=== PATIENT | female | born 1995 | race Caucasian/White ===

== ENCOUNTER 2022-09-25 10:15 | Outpatient (CLI) | payer OTHER ==
[2022-09-26 10:05] LABS: BILIRUBIN,URINE NEGATIVE (NEGATIVE); GLUCOSE, URINE (UA) NEGATIVE (NEGATIVE); KETONES,URINE (UA) NEGATIVE (NEGATIVE); LEUKOCYTE ESTERASE, URINE SMALL (NEGATIVE); NITRITE,URINE NEGATIVE (NEGATIVE); OCCULT BLOOD,URINE NEGATIVE (NEGATIVE); PROTEIN,URINE NEGATIVE (NEGATIVE); UROBILINOGEN,URINE 0.2 (NORMAL) E.U./dL (NORMAL)
[2022-09-26 10:13] LABS: BACTERIA,URINE Few /HPF (None Seen); CLARITY,URINE HAZY (CLEAR); RBC,URINE 0-5 /HPF (0-5); SQUAMOUS EPITHELIAL CELL,UR MANY Squamous (<= Few); WBC,URINE 0-3 /HPF (0-5)
== END 2022-09-25 10:16 | disposition home or self-care (01) ==
LOC: LAB.WC 10:15
PROVIDERS: ATTEND Obstetrics & Gynecology
DX: Z34.90 Encounter for supervision of normal pregnancy, unspecified, unspecified trimester (principal)
CPT/HCPCS: 81001; 87086

== ENCOUNTER 2022-09-26 10:52 | Outpatient (CLI) | payer OTHER ==
[2022-09-26 17:40] LABS: BASOPHILS % (AUTO) 0.5 %; EOSINOPHILS % (AUTO) 0.5 %; HCT - HEMATOCRIT 35.3 % (37.0-47.0); LYMPHOCYTES # (AUTO) 2.1 10^3/uL (1.5-3.5); LYMPHOCYTES % (AUTO) 32.7 %; MEAN CORPUSCULAR HEMOGLOBIN 30.7 pg (27.0-31.0); MEAN CORPUSCULAR VOLUME 90.3 fL (81.0-99.0); MEAN PLATELET VOLUME 10.7 fL (7.9-10.8); MONOCYTES # (AUTO) 0.4 10^3/uL (0.0-1.0); MONOCYTES % (AUTO) 6.5 %; NEUTROPHILS # (AUTO) 3.7 10^3/uL (1.5-6.6); NEUTROPHILS % (AUTO) 59.6 %; PLT - PLATELET COUNT 279 10^3/uL (130-450); RED BLOOD COUNT 3.91 10^6/uL (4.20-5.40); RED CELL DISTRIBUTION WIDTH 13.4 % (12.0-15.0); WHITE BLOOD COUNT 6.3 x10^3/uL (4.8-10.8)
[2022-09-27 06:10] LABS: HBsAG SCREEN Negative (Negative); HCV AB Non Reactive (Non Reactive); RPR Non Reactive (Non Reactive)
[2022-09-27 07:10] LABS: HIV SCREEN 4TH GENERATION Non Reactive (Non Reactive)
[2022-09-27 08:10] LABS: VARICELLA-ZOSTER AB IGG 229 index (Immune >165)
== END 2022-09-26 10:53 | disposition home or self-care (01) ==
LOC: LAB.N 10:52
PROVIDERS: ATTEND Obstetrics & Gynecology
DX: Z34.90 Encounter for supervision of normal pregnancy, unspecified, unspecified trimester (principal)
CPT/HCPCS: 36415; 85025; 86592; 86762; 86787; 86803; 86850; 86900; 86901; 87340; 87389

== ENCOUNTER 2022-10-11 18:33 | Outpatient (CLI) | payer OTHER ==
--- NOTE | 2022-10-13 09:11 | Ultrasound Report ---
PROCEDURE: OB First Trimester w/TV INDICATIONS: POSITIVE TEST OUTSIDE/PRIOR DATING DATA: Last menstrual period (LMP): 08/13/2022. LMP-based estimated date of delivery (SCOTT): 05/20/2023. First dating scan (date and location): 10/11/2022. Estimated date of delivery (SCOTT) from first dating scan: 05/22/2023. TECHNIQUE: Real-time scanning was performed of the fetus and maternal pelvic organs, with image documentation. Endovaginal scanning was also performed to better visualize the fetus and maternal ovaries. COMPARISON: None FINDINGS: Embryo: There is a limiting intrauterine with yolk sac and pole. The crown-rump arnoldo th measures 1.66 cm corresponding to estimated gestational age of 8 weeks 1 day. There is a small per igestational hemorrhage encompassing approximately 10% of the gestational sac. Heart rate: 166 bpm Measurement variability in dating: +/- 4 weeks by LMP, +/- 7 days by mean sac diameter (use before 6 weeks gestation if crown-rump length not able to be measured), +/- 5 days by crown-rump length (6-12 weeks gestation). Maternal organs: There is a corpus luteal cyst noted within the right ovary. The ovaries are otherwis e normal in size and appearance. IMPRESSION: Single intrauterine with heart rate of 166 bpm with crown-rump length corresponding t o estimated gestational age of 8 weeks 1 day with estimated date of delivery 05/22/2023. Small perigestational hemorrhage, a common finding in the first trimester. Reviewed by: Stephen Mandujano DO on 10/13/2022 8:10 AM CARMELO Approved by: Stephen Mandujano DO on 10/13/2022 8:10 AM CARMELO Station ID: [id number]
== END 2022-10-11 18:34 | disposition home or self-care (01) ==
LOC: DI 18:33
PROVIDERS: ATTEND Obstetrics & Gynecology
DX: O20.8 Other hemorrhage in early pregnancy (principal); Z3A.08 8 weeks gestation of pregnancy

== ENCOUNTER 2022-10-28 08:00 | Outpatient (CLI) | payer OTHER ==
[2022-10-28 20:28] LABS: CHLAMYDIA TRACHOMATIS DNA NEGATIVE (NEGATIVE); NEISSERIA GONORRHOEAE DNA NEGATIVE (NEGATIVE); TRICHOMONAS VAGINALIS DNA NEGATIVE (NEGATIVE)
== END 2022-10-28 23:59 | disposition home or self-care (01) ==
LOC: LAB.WC 08:00
PROVIDERS: ATTEND Obstetrics & Gynecology
DX: Z11.3 Encounter for screening for infections with a predominantly sexual mode of transmission (principal)
CPT/HCPCS: 87491; 87591; 87661

== ENCOUNTER 2022-11-21 10:09 | Emergency (ER) | payer OTHER ==
[2022-11-21 11:17] LABS: BASOPHILS % (AUTO) 0.2 %; EOSINOPHILS % (AUTO) 0.1 %; HCT - HEMATOCRIT 32.8 % (37.0-47.0); HGB - HEMOGLOBIN 11.5 g/dL (12.0-16.0); LYMPHOCYTES # (AUTO) 1.3 10^3/uL (1.5-3.5); LYMPHOCYTES % (AUTO) 16.6 %; MEAN CORPUSCULAR HEMOGLOBIN 30.7 pg (27.0-31.0); MEAN CORPUSCULAR HGB CONC 35.1 g/dL (32.0-36.0); MEAN CORPUSCULAR VOLUME 87.7 fL (81.0-99.0); MEAN PLATELET VOLUME 10.2 fL (7.9-10.8); MONOCYTES # (AUTO) 0.4 10^3/uL (0.0-1.0); MONOCYTES % (AUTO) 4.6 %; NEUTROPHILS # (AUTO) 6.2 10^3/uL (1.5-6.6); NEUTROPHILS % (AUTO) 77.9 %; PLT - PLATELET COUNT 217 10^3/uL (130-450); RED BLOOD COUNT 3.74 10^6/uL (4.20-5.40); RED CELL DISTRIBUTION WIDTH 12.9 % (12.0-15.0)
[2022-11-21] MEDS ORDERED: SODIUM CHLORIDE 0.9% 1,000 ML IV STA (11:24)
[2022-11-21] MEDS ORDERED: IPRATROPIUM/ALBUTEROL 3 ML NEB INH STA (11:32)
[2022-11-21 11:33] LABS: ALBUMIN 3.3 g/dL (3.2-5.5); BILIRUBIN,TOTAL 0.6 mg/dL (0.2-1.0); CALCIUM 8.7 mg/dL (8.5-10.3); CREATININE 0.5 mg/dL (0.4-1.0); POTASSIUM 4.2 mmol/L (3.5-5.0); TOTAL PROTEIN 6.7 g/dL (6.7-8.2)
--- NOTE | 2022-11-21 11:47 | ED Physician Documentation ---
History of Present Illness - Stated complaint Stated Complaint: LEG CRAMPING/PX - Chief complaint Chief Complaint: Ext Problem - Additonal information Additional information: 27-year-old female who is reportedly 14 weeks presents to the emergency department for cramping in both her upper thighs. G3, P2. Being followed by Terry Solorio. She reports that she was playing kickball and has not been active or running in quite some time. She was running to the first base when she felt a sudden cramping in both her legs that collapsed her to the ground. She was unable to get up until a friend gently stretched her legs and that allowed her to ambulate. Since then she has felt dull cramping in her upper thighs radiating down towards her knees. She does not yet feel movement. She has no loss of fluids or vaginal ble eding. No nausea or vomiting. No diarrhea. No history of cramping in the past. States that she is staying well-hydrated and describes her urine as pale yellow. Review of Systems Constitutional: denies: Fever Nose: reports: Reviewed and negative Cardiac: reports: Reviewed and negative Respiratory: reports: Reviewed and negative GI: reports: Reviewed and negative : reports: Reviewed and negative Musculoskeletal: reports: Other (Cramping in upper thighs bilaterally) Neurologic: reports: Reviewed and negative Psychiatric: reports: Reviewed and negative PD PAST MEDICAL HISTORY - Allergies Allergies/Adverse Reactions: Allergies Allergy/AdvReac Type Severity Reaction Status Date / Time nickel Allergy Hives Verified 02/19/22 13:52 Latex, Natural Rubber AdvReac Itching Verified 02/19/22 13:51 PD ED PE NORMAL - General General: Alert and oriented X 3, No acute distress, Well developed/nourished - HEENT HEENT: PERRL - Cardiac Cardiac: RRR, No murmur - Respiratory Respiratory: No respiratory distress, Clear bilaterally - Abdomen Abdomen: Normal bowel sounds, Soft, Non tender - Back Back: No CVA TTP - Derm Derm: Normal color, Warm and dry, No rash - Extremities Extremities: No deformity, Normal ROM s pain, Other (Patient reports cramping in the upper thighs though no spasm is felt. She has a normal gait. No posterior calf pain tenderness). No: No tenderness to palpate - Neuro Neuro: Alert and oriented X 3, manager testing 2-12 intact Eye Opening: Spontaneous Motor: Obeys Commands Verbal: Oriented GCS Score: 15 Results - Vitals Vitals: Vital Signs - 24 hr 11/21/22 10:24 Temperature 36.3 C L Heart Rate 79 Respiratory 18 Rate Blood Pressure 130/78 O2 Saturation 100 Oxygen O2 Source Room air - Labs Labs: Laboratory Tests 11/21/22 11/21/22 11/21/22 11:12 11:12 11:12 WBC 8.0 RBC 3.74 L Hgb 11.5 L Hct 32.8 L MCV 87.7 MCH 30.7 MCHC 35.1 RDW 12.9 Plt Count 217 MPV 10.2 Neut # (Auto) 6.2 Lymph # (Auto) 1.3 L [place] # (Auto) 0.4 Eos # (Auto) 0.0 Baso # (Auto) 0.0 Absolute Nucleated RBC 0.00 Nucleated RBC % 0.0 Sodium 140 Potassium 4.2 Chloride 109 Carbon Dioxide 25 Anion Gap 6.0 BUN 9 Creatinine 0.5 Estimated GFR (MDRD) 149 Glucose 85 Calcium 8.7 Magnesium 1.9 Total Bilirubin 0.6 AST 18 ALT 14 Alkaline Phosphatase 37 L Total Protein 6.7 Albumin 3.3 Globulin 3.4 Albumin/Globulin Ratio 1.0 Lipase 41 PD Medical Decision Making - ED course Complexity details: reviewed results, re-evaluated patient, d/w patient ED course: 27-year-old female who is 14 weeks G3, P2 presents emergency department for cramping in the upper thighs that occurred when she was running during kickball. No vaginal bleeding or loss of fluids. She is never had this problem in before. She has no leg swelling. No chest pain or shortness of air. We did check heart tones via Doppler here and they were normal. We also checked CBC, electrolytes and magnesium and were all without acute abnormality. I did give the patient a liter of IV fluids. She reports she still continues to have some mild cramping in the upper thighs. Clinically there is nothing suggest a DVT. I have encouraged the patient gentle activity and stretching. I encouraged sitz bath and or drinking broth which may be helpful. She will continue to follow with Terry Solorio. Usual emergent re turn precautions were discussed for worsening symptoms Departure - Departure Disposition: 01 Home, Self Care Clinical Impression: Leg cramps in Condition: Stable Record reviewed to determine appropriate education?: Yes Follow-Up: Terry Solorio MD [Provider Admit Priv/Credential] - Comments: Marley you are seen today in the emergency department because you developed cramping in your upper thighs when you are running during kickball. Cramping is a common complication of . Most women will feel better when they stay well-hydrated though you seemingly are well-hydrated. Your electrolytes and blood count were also normal for with no worrisome findings. I encouraged gentle stretching. Drinking broths and soups can often be helpful. A sitz bath can also be helpful at reducing leg cramps. I encourage you to discuss this ED visit with Dr. Solorio. Return to the ER with any worsening symptoms
[2022-11-21 12:51] VITALS: BP 115/69
== END 2022-11-21 12:49 | disposition home or self-care (01) ==
LOC: ED 10:09
DX: O99.891 Other specified diseases and conditions complicating pregnancy (principal); R25.2 Cramp and spasm
CPT/HCPCS: 36415; 80053; 83690; 83735; 85025; 99283; 99284

== ENCOUNTER 2022-12-03 09:20 | Outpatient (CLI) | payer OTHER ==
[2022-12-05 21:07] LABS: AFP MOM 0.65 (.); AFP VALUE 19.9 ng/mL (.); DIA MOM 0.59 (.); DIA VALUE 82.01 pg/mL (.); DSR (BY AGE) 1 IN 918 (.); DSR (SECOND TRIMESTER) 1 IN 6193 (.); HCG VALUE 42074 mIU/mL (.); INSULIN DEP DIABETES No (.); MATERNAL AGE AT EDD 27.1 yr (.); MULTIPLE GESTATION No (.); OPEN SPINA BIFIDA RISK 1 IN 10000 (.); RACE Caucasian (.); RESULTS Report (.); TEST RESULTS *Screen Negative* (.); TRISOMY 18 RISK Not increased (.); UE3 MOM 0.85 (.); UE3 VALUE 0.76 ng/mL (.); WEIGHT 181 lbs (.)
== END 2022-12-03 09:21 | disposition home or self-care (01) ==
LOC: LAB.N 09:20
PROVIDERS: ATTEND Obstetrics & Gynecology
DX: Z34.90 Encounter for supervision of normal pregnancy, unspecified, unspecified trimester (principal)
CPT/HCPCS: 81511

== ENCOUNTER 2022-12-31 08:45 | Outpatient (CLI) | payer OTHER ==
--- NOTE | 2022-12-31 12:08 | Ultrasound Report ---
PROCEDURE: OB Detailed Eval INDICATIONS: SUPERVISION OF OUTSIDE/PRIOR DATING DATA: Last menstrual period (LMP): 08/13/2022. LMP-based estimated date of delivery (SCOTT): 05/20/2023. First dating scan (date and location): 10/11/2022. Estimated date of delivery (SCOTT) from first dating scan: 05/22/2023. The below data below was generated using the ultrasound SCOTT of 05/22/2023 TECHNIQUE: Real-time scanning was performed of the fetus, with image documentation and biometric measurements. Endovaginal scanning: Not performed COMPARISON: None. FINDINGS: General: A single living intrauterine gestation is present. Presentation: Variable Placenta: Placental position is anterior, without previa. Amniotic fluid index: 14.2 cm, within normal limits for gestational age. heart rate: 144 beats per minute. Maternal cervical canal: 4 cm long; normal length is 2.5 cm or more. biometrics: Biparietal diameter: 4.6 cm, 19 weeks 5 days Head circumference: 16.7 cm, 19 weeks 2 days Abdominal circumference: 14.5 cm, 19 weeks 6 days Femur length: 3.2 cm, 19 weeks 6 days Estimated gestational age from initial scan: 19 weeks 5 days Composite gestational age from present scan: 19 weeks 5 days Estimated weight and percentile: 315 g, 51 percentile Measurement variability in biometric dating: +/- 10 days from 12-20 weeks gestation, +/- 2 weeks from 20-30 weeks gestation, +/- 3 weeks at 30 weeks gestation or later. Anatomic survey: Neuro: Ventricles are normal at less than 10 mm. Cisterna magna is normal at 3-11 mm. Cerebellum i s normal in size and morphology. Nuchal skin fold: Normal at less than 6 mm between 14 and 20 weeks gestational age. Face: Nose and lips, facial profile are normal. Spine: No evidence for spina bifida. Heart: 4-chambered heart is present, with normal ventricular outflow tracts. Diaphragm: Diaphragm is intact. Stomach: Left-sided stomach is present. Kidneys: No hydronephrosis. Normal is less than 5 mm in 2nd trimester, less than 7 mm in 3rd trimester. Cord: 3 vessel cord has orthotopic insertion. Bladder: Normal in size. Extremities: All 4 extremities are visualized. IMPRESSION: Single living intrauterine at 19 weeks 5 days, SCOTT of 05/22/2023. Unremarkable anatomy survey. 315 g, 51st percentile. Reviewed by: Cory Ferreira on 12/31/2022 12:07 PM PDT Approved by: Cory Ferreira on 12/31/2022 12:07 PM PDT Station ID: [id number]
== END 2022-12-31 08:46 | disposition home or self-care (01) ==
LOC: DI 08:45
PROVIDERS: ATTEND Obstetrics & Gynecology
DX: Z34.92 Encounter for supervision of normal pregnancy, unspecified, second trimester (principal); Z3A.19 19 weeks gestation of pregnancy

== ENCOUNTER 2023-02-14 08:40 | Outpatient (CLI) | payer OTHER ==
[2023-02-14 12:15] LABS: HCT - HEMATOCRIT 34.3 % (37.0-47.0); HGB - HEMOGLOBIN 11.7 g/dL (12.0-16.0); MEAN CORPUSCULAR HGB CONC 34.1 g/dL (32.0-36.0); MEAN PLATELET VOLUME 11.4 fL (7.9-10.8); RED BLOOD COUNT 3.77 10^6/uL (4.20-5.40); RED CELL DISTRIBUTION WIDTH 12.8 % (12.0-15.0); WHITE BLOOD COUNT 8.9 x10^3/uL (4.8-10.8)
== END 2023-02-14 08:41 | disposition home or self-care (01) ==
LOC: LAB.N 08:40
PROVIDERS: ATTEND Obstetrics & Gynecology
DX: Z34.90 Encounter for supervision of normal pregnancy, unspecified, unspecified trimester (principal)
CPT/HCPCS: 36415; 82950; 85027

== ENCOUNTER 2023-04-21 08:00 | Outpatient (CLI) | payer OTHER | END 2023-04-21 23:59 | disposition home or self-care (01) | LOC: LAB.WC 08:00 | PROVIDERS: ATTEND Obstetrics & Gynecology | DX: Z36.85 Encounter for antenatal screening for Streptococcus B (principal) | CPT/HCPCS: 87797 ==

== ENCOUNTER 2023-04-30 14:06 | Outpatient (CLI) | payer OTHER ==
[2023-04-30 14:20] VITALS: BP 133/82
[2023-04-30] MEDS ORDERED: SODIUM CHLORIDE 0.9% 500 ML IV ONE (14:43)
[2023-04-30 15:37] LABS: CREATININE,URINE 45.5 mg/dL; PROTEIN/CREATININE RATIO,URINE 0.1 (<=0.2)
--- NOTE | 2023-04-30 15:37 | PROVIDER PROGRESS NOTE ---
- HPI Chief Complaint: Headache (Patient is a -0-0-2 presenting at 37 weeks and 1 day with headache that started this morning. Patient has had a history of headaches in the that occur overnight that typically go away with Tylenol. Patient states this 1 did not go away. She has no other complaints. Positive ) Current : Vital Signs Temperature 98.3 F 04/30/23 14:18 Heart Rate 72 04/30/23 14:18 Respiratory Rate 16 04/30/23 14:18 Blood Pressure 133/82 H 04/30/23 14:18 Temperature 98.3 F 04/30/23 14:19 Heart Rate 75 04/30/23 14:19 Respiratory Rate 16 04/30/23 14:19 Blood Pressure 133/82 H 04/30/23 14:19 O2 Saturation If not protocol: Oxygen Flow, liters/minute - Exam Gen: NAD, patient laughing and talking Pulm: CTA bilaterally Cardiac: RRR Abdomen: gravid, nontender ext: trace edema neuro: 1+ DTRs bilaterally - Procedures OB Procedure Performed: NST NST Procedure: NST Procedure Start Time 14:50 Stop Time 15:12 37+1 weeks 140, moderate variability, +accels, no decels reactive NST - Plan Plan: If preeclampsia labs are within normal limits will discharge to home. Blood pressures have been within normal limits. Patient given IV fluids, Benadryl and Reglan. wellbeing is reassuring.
[2023-04-30 15:38] LABS: ALBUMIN 3.4 g/dL (3.2-5.5); BILIRUBIN,TOTAL 0.3 mg/dL (0.2-1.0); CALCIUM 9.2 mg/dL (8.5-10.3); CREATININE 0.7 mg/dL (0.6-1.3); POTASSIUM 3.7 mmol/L (3.5-4.5); TOTAL PROTEIN 6.7 g/dL (6.4-8.9); URIC ACID 6.3 mg/dL (2.3-6.6)
[2023-04-30] MEDS ORDERED: diphenhydrAMINE INJ 50 MG/ML VIAL IVP PRN (15:45)
[2023-04-30] MEDS ORDERED: ACETAMINOPHEN 325 MG TABLET PO PRN (15:46)
[2023-04-30] MEDS ORDERED: METOCLOPRAMIDE 10 MG/2 ML VIAL IVP ONE (16:00)
== END 2023-04-30 17:20 | disposition home or self-care (01) ==
LOC: WFO 14:06 → FBP 14:06 → WFO 17:20
PROVIDERS: ATTEND Obstetrics & Gynecology Obstetrics
DX: O99.891 Other specified diseases and conditions complicating pregnancy (principal); R51.9 Headache, unspecified; Z3A.37 37 weeks gestation of pregnancy
CPT/HCPCS: 36415; 59025; 80053; 82570; 83615; 84156; 84550; 96361; 96374; 99215; A9270; J1200; J2765

== ENCOUNTER 2023-05-12 13:47 | Outpatient (CLI) | payer OTHER ==
[2023-05-12 14:26] LABS: HCT - HEMATOCRIT 33.3 % (37.0-47.0); MEAN CORPUSCULAR HEMOGLOBIN 28.7 pg (27.0-31.0); MEAN CORPUSCULAR VOLUME 86.9 fL (81.0-99.0); MEAN PLATELET VOLUME 10.7 fL (7.9-10.8); RED BLOOD COUNT 3.83 10^6/uL (4.20-5.40); WHITE BLOOD COUNT 10.8 x10^3/uL (4.8-10.8)
[2023-05-12 14:38] LABS: ALBUMIN 3.5 g/dL (3.2-5.5); BILIRUBIN,TOTAL 0.2 mg/dL (0.2-1.0); CALCIUM 8.8 mg/dL (8.5-10.3); CREATININE 0.7 mg/dL (0.6-1.3); POTASSIUM 4.1 mmol/L (3.5-4.5); TOTAL PROTEIN 7.1 g/dL (6.4-8.9)
[2023-05-12 14:39] LABS: CREATININE,URINE 89.5 mg/dL; PROTEIN/CREATININE RATIO,URINE 0.1 (<=0.2)
== END 2023-05-12 13:48 | disposition home or self-care (01) ==
LOC: LAB 13:47
PROVIDERS: ATTEND Obstetrics & Gynecology
DX: O99.891 Other specified diseases and conditions complicating pregnancy (principal); R03.0 Elevated blood-pressure reading, without diagnosis of hypertension
CPT/HCPCS: 36415; 80053; 82570; 84156; 85027

== ENCOUNTER 2023-05-22 13:33 | Outpatient (CLI) | payer OTHER ==
[2023-05-22 14:47] VITALS: BP 128/78
--- NOTE | 2023-05-22 15:04 | Ultrasound Report ---
PROCEDURE: OB Limited INDICATIONS: ALVARADO OUTSIDE/PRIOR DATING DATA: Last menstrual period (LMP): 08/13/2022. LMP-based estimated date of delivery (SCOTT): 05/20/2023. First dating scan (date and location): 10/11/2022. Estimated date of delivery (SCOTT) from first dating scan: 05/22/2023. The below data below was generated using the working SCOTT of 05/20/2023 TECHNIQUE: Real-time scanning was performed of the fetus, with image documentation. Endovaginal scanning: Not performed COMPARISON: 12/31/2022 FINDINGS: A single living intrauterine gestation is present. Presentation: Cephalic Placenta: Placental position is anterior, without previa. Amniotic fluid index: 19.0 cm, greater than 95th percentile for gestational age. heart rate: 148 beats per minutes. Maternal cervical canal: 4.3 cm long; normal length is 2.5 cm or more. Estimated gestational age from initial scan: 40 weeks 2 days IMPRESSION: 1. Living post term intrauterine with no sonographic evidence of complications. 2. Polyhydramnios: ALVARADO measures 19.0 cm Reviewed by: Horacio Castellano MD on 05/22/2023 3:03 PM PST Approved by: Horacio Castellano MD on 05/22/2023 3:03 PM PST Station ID: [id number]
--- NOTE | 2023-05-22 15:41 | PROVIDER PROGRESS NOTE ---
- HPI Current : Vital Signs Temperature 98.1 F 05/22/23 13:48 Temperature 98.1 F 05/22/23 13:49 Heart Rate 78 05/22/23 13:49 Respiratory Rate 16 05/22/23 13:49 Blood Pressure 128/78 05/22/23 13:49 O2 Saturation If not protocol: Oxygen Flow, liters/minute - Procedures OB Procedure Performed: NST Diagnosis/Indication for NST: Oligohydramnios NST Procedure: NST Procedure Start Time 14:40 Stop Time 15:10 Service Date of procedure: 05/22/23 (Read 05/22/2023) - Plan Plan: Patient is a 28-year-old -0-0-2 at 40 weeks 2 days gestation presenting for oligohydramnios subjectively noted at clinic. She has good movement, no leaking, no vaginal bleeding. She denies headache, right upper quadrant pain, changes in vision. Physical Exam Constitutional: alert, no acute distress, well hydrated, well developed, well n ourished, appropriate dress. Cardiovascular: Regular rate and rhythm. Respiratory: no respiratory distress. Abdomen: nondistended, nontender, no guarding. Psych: affect and mood appropriate, normal interaction, good eye contact FHT: 145 bpm baseline, moderate variability, accelerations present, 1 variable deceleration early in her stay. [place]: 5 to 10 minutes, irregular Patient presented today coming from clinic for subjective polyhydramnios. Had a normal ALVARADO on admission. NST showed 1 variable deceleration with patient positioning, and she was observed in triage for over an additional hour with no additional episodes. Discussed option of staying for induction, but patient is not ready due to family concerns. She will present in 2 days for labor induction. Discussed decreased movement, leaking, labor precautions.
== END 2023-05-22 15:45 | disposition home or self-care (01) ==
LOC: WFO 13:33 → FBP 13:35 → WFO 15:45
PROVIDERS: ATTEND Obstetrics & Gynecology
DX: O40.3XX0 Polyhydramnios, third trimester, not applicable or unspecified (principal); O48.0 Post-term pregnancy; Z3A.40 40 weeks gestation of pregnancy
CPT/HCPCS: 59025; 99215

== ENCOUNTER 2023-05-23 18:34 | Outpatient (CLI) | payer OTHER ==
[2023-05-23 19:28] VITALS: BP 127/73
--- NOTE | 2023-05-23 20:25 | PROVIDER PROGRESS NOTE ---
- HPI Chief Complaint: Labor Check Current : Current EDU 05/20/23 Gestation 40 Weeks and 3 Days 3 Para 2 Vital Signs Temperature 97.9 F 05/23/23 19:04 Heart Rate 76 05/23/23 19:04 Respiratory Rate 18 05/23/23 19:04 Blood Pressure 127/73 05/23/23 19:04 Temperature 97.9 F 05/23/23 19:04 Heart Rate 76 05/23/23 19:04 Respiratory Rate 18 05/23/23 19:04 Blood Pressure 127/73 05/23/23 19:04 O2 Saturation If not protocol: Oxygen Flow, liters/minute - Exam -2 - Procedures OB Procedure Performed: NST NST Procedure: NST Procedure Start Date 05/23/23 Start Time 18:50 Stop Time 19:15 Vibroacoustic Stimulation Used No Patient States Movement Yes 40+2 130, moderate variability, +accels, no decels reactive NST Procedure Details: Reactive NST. offered to have patient stay, she preferred to go home. schedule for induction tomorrow am. Advised to return for decreased movement, vaginal bleeding, leakage of fluid or any other concerns.
== END 2023-05-23 19:55 | disposition home or self-care (01) ==
LOC: WFO 18:34 → FBP 18:35 → WFO 19:55
PROVIDERS: ATTEND Obstetrics & Gynecology Obstetrics
DX: O47.1 False labor at or after 37 completed weeks of gestation (principal); O48.0 Post-term pregnancy; Z3A.40 40 weeks gestation of pregnancy
CPT/HCPCS: 59025; 99213

== ENCOUNTER 2023-05-25 08:10 | Inpatient (IN) | payer OTHER ==
--- NOTE | 2023-05-25 09:23 | HISTORY & PHYSICAL EXAMINATION ---
Admit History - Visit Reason Visit Reason: Other (Elective induction of labor) - : 3 Parity: 2 Care: positive: [facility] Risk/History: positive: None Complications This : positive: None - Mother's Labs Mother's Blood Type: positive: O Mother's RH: positive: Positive GBS: positive: Group B Step Negative - HPI Diagnosis/Indication for NST: Other - NST Procedure NST Procedure Start Time 18:50 Stop Time 19:15 40+ weeks 130, moderate variability, +accels, no decels reactive NST Meds/Allgy - Allergies Allergies/Adverse Reactions: Allergies Allergy/AdvReac Type Severity Reaction Status Date / Time nickel Allergy Hives Verified 02/19/22 13:52 Latex, Natural Rubber AdvReac Itching Verified 02/19/22 13:51 Review of Systems - Constitutional Constitutional: denies: Fatigue, Fever, Chills - Cardiovascular Cariovascular: denies: Chest pain - Respiratory Respiratory: denies: Cough - Gastrointestinal Gastrointestinal: denies: Abdominal pain - All Other Systems All Other Systems: reports: Reviewed and negative Physical - Abdominal Exam Uterine Resting Tone: positive: Soft - Monitoring Strip Review: positive: Category I - Presentation Presentation: positive: Vertex - Vaginal Exam Membranes: positive: Membranes intact Dilation (in cm): 3 Effacement (%): 70 Station: positive: -2 Cervical Position: positive: Midposition Plan for Labor - Plan For Labor I expect patient to be DC'd or transferred within 96 hours.: Yes Plan for Labor: Discussed induction of labor including risk, benefits, and alternatives. Discussed options including Pitocin and artificial rupture membranes. Informed consent was signed. Patient agrees to starting Pitocin for induction.
[2023-05-25] MEDS ORDERED: miSOPROStoL 200 MCG TABLET BC PRN (09:26)
[2023-05-25] MEDS ORDERED: NIFEdipine 10 MG CAPSULE PO PRN (09:26)
[2023-05-25] MEDS ORDERED: miSOPROStoL 200 MCG TABLET PR PRN (09:26)
[2023-05-25] MEDS ORDERED: METHYLERGONOVINE 0.2 MG/ML VIAL IM PRN (09:26)
[2023-05-25] MEDS ORDERED: TRANEXAMIC ACID IN NACL 1,000 MG/100 ML BAG IV PRN (09:26)
[2023-05-25] MEDS ORDERED: lidocaine 1% 20 ML MDV ID PRN (09:26)
[2023-05-25] MEDS ORDERED: OXYTOCIN 10 UNIT/ML VIAL IM PRN (09:26)
[2023-05-25] MEDS ORDERED: CARBOPROST TROMETHAMINE 250 MCG/ML AMP IM PRN (09:26)
[2023-05-25] MEDS ORDERED: SODIUM CHLORIDE FLUSH 0.9% 10 ML SYRINGE IVP PRN (09:26)
[2023-05-25] MEDS ORDERED: OXYTOCIN/SODIUM CHLORIDE 500 ML IV PRN (09:26)
[2023-05-25] MEDS ORDERED: fentaNYL 100 MCG/2 ML VIAL IVP PRN (09:26)
[2023-05-25] MEDS ORDERED: LABETALOL 20 MG/4 ML SYRINGE IVP PRN ×3 (09:26)
[2023-05-25] MEDS ORDERED: hydrALAZINE INJ 20 MG/ML VIAL IVP PRN ×2 (09:26)
[2023-05-25] MEDS ORDERED: LACTATED RINGERS 1,000 ML IV PRN (09:26)
[2023-05-25 09:48] LABS: BASOPHILS % (AUTO) 0.2 %; EOSINOPHILS % (AUTO) 0.2 %; HCT - HEMATOCRIT 31.8 % (37.0-47.0); HGB - HEMOGLOBIN 10.6 g/dL (12.0-16.0); LYMPHOCYTES # (AUTO) 1.4 10^3/uL (1.5-3.5); LYMPHOCYTES % (AUTO) 15.4 %; MEAN CORPUSCULAR HEMOGLOBIN 28.5 pg (27.0-31.0); MEAN CORPUSCULAR HGB CONC 33.3 g/dL (32.0-36.0); MEAN CORPUSCULAR VOLUME 85.5 fL (81.0-99.0); MEAN PLATELET VOLUME 11.2 fL (7.9-10.8); MONOCYTES # (AUTO) 0.5 10^3/uL (0.0-1.0); MONOCYTES % (AUTO) 5.6 %; NEUTROPHILS # (AUTO) 6.9 10^3/uL (1.5-6.6); NEUTROPHILS % (AUTO) 78.1 %; PLT - PLATELET COUNT 248 10^3/uL (130-450); RED BLOOD COUNT 3.72 10^6/uL (4.20-5.40); WHITE BLOOD COUNT 8.8 x10^3/uL (4.8-10.8)
[2023-05-25] MEDS ORDERED: OXYTOCIN/SODIUM CHLORIDE 500 ML IV SCH (10:00)
[2023-05-25] MEDS ORDERED: SODIUM CHLORIDE FLUSH 0.9% 10 ML SYRINGE IVP SCH (10:00)
--- NOTE | 2023-05-25 13:32 | PROVIDER PROGRESS NOTE ---
Labor Progress Note - Uterine Monitoring Uterine Monitoring Mode: positive: External toco Contraction Frequency (min/apart): 3 Contraction Intensity: positive: Strong Uterine Resting Tone: positive: Soft - Monitoring Monitor Mode: positive: External ultrasound Heart Rate Variability: positive: Moderate (6-25 bmp) Accelerations: positive: Present, 15x15 Decelerations: positive: None Strip Review: positive: Category I - Labor Progress Note Labor Progress Note/Additional Text: Patient on pitocin currently in tub getting more uncomfortable
--- NOTE | 2023-05-25 14:08 | PROVIDER PROGRESS NOTE ---
Labor Progress Note - Uterine Monitoring Uterine Monitoring Mode: positive: External toco Contraction Intensity: positive: Strong - Monitoring Monitor Mode: positive: External ultrasound Heart Rate Variability: positive: Moderate (6-25 bmp) Accelerations: positive: Present, 15x15 Decelerations: positive: None Strip Review: positive: Category I - Vaginal Exam Dilation (in cm): 5 Effacement (%): 80 - Labor Progress Note Labor Progress Note/Additional Text: AROM with clear fluid on pitocin
[2023-05-25] MEDS ORDERED: SIMETHICONE CHEW 80 MG TABLET PO PRN (15:27)
--- NOTE | 2023-05-25 15:27 | DELIVERY NOTE ---
Delivery Note - Labor Labor: positive: Augmented by ARM, Induced by oxytocin - Delivery Method Infant Delivery Method: positive: Spontaneous vaginal delivery - Presentation Presentation: positive: Vertex - Nuchal Cord Nuchal Cord: positive: Reduced (Nuchal cord reduced at perineum) - Amniotic Fluid Description Amniotic Fluid Description: positive: Clear - Episiotomy Type Episiotomy Type: positive: None - Laceration Laceration: positive: None - Delivery Outcome Delivery Outcome: positive: Livebirth - [place]: positive: Placed in direct skin contact with mother, [place] used sex: positive: Female - Cord Cord: positive: 3 vessels - Placenta Placenta: positive: Intact - Estimated Blood Loss Estimated Blood Loss (in cc): 150 - Post Delivery Events Post Delivery Events: positive: No post delivery events - Delivery Comments (Free Text/Narrative) Delivery Comments (Free Text/Narrative): Stage I: Patient is a presenting at 40+3 for induction of labor. Pitocin started for induction. AROM with clear fluid. FHTs remained reassuring throughout the first stage. Patient received an epidural for anesthesia. Stage II: Female was atraumatcally delivered from SHELIA position. Nuchal cord reduced at perineum. The anterior shoulder was delivered without difficulty followed by the posterior shoulder and body. was vigorous at delivery. was bulb suctioned and cord was doubly clamped and cut. Infant was placed on mom. Weight and APGARS pending Stage III: Gentle cord traction and crede maneuver were used. Placenta del ivered spontaneously, Intact, with a three-vessel cord. Course: Uterine tone was firm with massage after delivery of the placenta. Oxytocin was administered IV. There were no lacerations. EBL: 150 mL. Sponge, needle, and instrument counts were correct at the end the procedure.
[2023-05-25] MEDS: IBUPROFEN 600 MG TABLET PO SCH ×2 (15:49→22:17)
[2023-05-25] MEDS: ACETAMINOPHEN 500 MG TABLET PO SCH (15:50)
[2023-05-25] MEDS ORDERED: LACTATED RINGERS 1,000 ML IV SCH (16:00)
[2023-05-25 19:53] VITALS: O2SAT 100
[2023-05-25] MEDS: DOCUSATE SODIUM 100 MG CAPSULE PO PRN (22:18)
[2023-05-26] MEDS: ACETAMINOPHEN 500 MG TABLET PO SCH ×2 (00:15→08:25)
[2023-05-26] MEDS: IBUPROFEN 600 MG TABLET PO SCH ×2 (04:02→10:23)
--- NOTE | 2023-05-26 07:37 | Discharge Plan ---
Discharge Plan Problem Reviewed?: Yes Disposition: Home, Self Care Condition: Good Diet: Regular No Smoking: If you smoke, Please STOP! Call for help. Follow-up with: CHIO MORAN PA-C [Primary Care Provider] -
--- NOTE | 2023-05-26 07:39 | DISCHARGE SUMMARY ---
Discharge Summary Admit Date: 05/25/23 Discharge Date: 05/26/23 Discharging Provider: Isabel Condition at Discharge: Good Discharge Disposition: 01 Home, Self Care - HPI History of Present Illness: Patient is a G3, P2 who presented for induction of labor. Patient was started on Pitocin. AROM with clear fluid. Patient had an uncomplicated normal spontaneous vaginal delivery. She did well and was discharged home on day 1. Patient was counseled on signs and symptoms of depression. - ALLERGIES Allergies/Adverse Reactions: Allergies Allergy/AdvReac Type Severity Reaction Status Date / Time nickel Allergy Hives Verified 02/19/22 13:52 Latex, Natural Rubber AdvReac Itching Verified 02/19/22 13:51 - PHYSICAL EXAM AT DISCHARGE General Appearance: positive: No acute distress Respiratory: positive: Breath sounds nml Cardiovascular: positive: Regular rate & rhythm Abdomen: positive: Non-tender (Firm fundus below the umbilicus) Skin: positive: Color nml Extremities: positive: Pedal edema (1+) - LABS Result Diagrams: 05/25/23 08:45
--- NOTE | 2023-05-26 07:40 | PROVIDER PROGRESS NOTE ---
Subjective - Prog Note Date Prog Note Date: 05/26/23 Prog Note Time: 07:39 - Subjective Subjective: Patient is day 1 status postnormal spontaneous vaginal delivery. Patient is doing well this morning. She is ambulating, tolerating a diet, spo ntaneously voiding. She denies chest pain or shortness of breath. Lochia is less than menses. Objective - Vital Signs/Intake & Output Reviewed Vital Signs: Yes Vital Signs: Vital Signs x48h Temp Pulse Resp BP Pulse Ox 05/26/23 04:05 97.8 F 67 16 120/73 100 05/26/23 00:19 97.9 F 63 16 120/74 100 Intake & Output: Intake & Output 05/23/23 05/24/23 05/25/23 05/26/23 23:59 23:59 23:59 23:59 Intake Total 1564.233 Output Total 400 Balance 1164.233 - Objective General Appearance: positive: No acute distress Respiratory: positive: Breath sounds nml Cardiovascular: positive: Regular rate & rhythm Abdomen: positive: Non-tender (Firm fundus below the umbilicus) Extremities: positive: Pedal edema (1+) - Lab Results Fish Bones: 05/25/23 08:45 Other Labs: Lab Results x24hrs 05/25/23 05/25/23 Range/Units 08:45 08:45 WBC 8.8 (4.8-10.8) x10^3/uL RBC 3.72 L (4.20-5.40) 10^6/uL Hgb 10.6 L (12.0-16.0) g/dL Hct 31.8 L (37.0-47.0) % MCV 85.5 (81.0-99.0) fL MCH 28.5 (27.0-31.0) pg MCHC 33.3 (32.0-36.0) g/dL RDW 13.0 (12.0-15.0) % Plt Count 248 (130-450) 10^3/uL MPV 11.2 H (7.9-10.8) fL Neut # (Auto) 6.9 H (1.5-6.6) 10^3/uL Lymph # (Auto) 1.4 L (1.5-3.5) 10^3/uL [place] # (Auto) 0.5 (0.0-1.0) 10^3/uL Eos # (Auto) 0.0 (0.0-0.7) 10^3/uL Baso # (Auto) 0.0 (0.0-0.1) 10^3/uL Absolute Nucleated RBC 0.00 x10^3/uL Nucleated RBC % 0.0 /100WBC Blood Type O POSITIVE Antibody Screen NEGATIVE Assessment/Plan - Problem List (1) Vaginal delivery Impression: Patient doing well . Discussed signs and symptoms of depr ession. Patient declines contraception.
[2023-05-26] MEDS: DOCUSATE SODIUM 100 MG CAPSULE PO PRN (08:25)
[2023-05-26 13:52] VITALS: BP 115/74
--- NOTE | 2023-05-26 16:42 | Labor Flowsheet ---
Labor Flowsheet Datetime Report Generated by CPN: 05/26/2023 16:42 Datetime: 05/26/2023 13:43 VITAL SIGNS NBP Sys/Liz/Mean (mmHg): 115 : 74 : 82 Pulse: 66 Datetime: 05/26/2023 08:34 SpO2 (%): 100 Datetime: 05/25/2023 17:16 Stage of : Recovery Datetime: 05/25/2023 16:00 Respirations: 16 Temperature (C): 37.1 Temperature Route: Oral PAIN Pain Scale: 2 Pain Presence: Intermittent Pain Type: Cramping Pain Location: Abdomen Pain Relief Measures: Pain Medication Given Datetime: 05/25/2023 15:20 Medication Comments: Pit bolus started Datetime: 05/25/2023 15:12 VAGINAL EXAM Dilatation (cm): 9.5 Effacement (%): 100 Station: 0 Datetime: 05/25/2023 15:10 Patient Care Comments: Returned to back, lt tilt Datetime: 05/25/2023 14:59 Comments: difficulty tracing FHR d/t maternal position, no audible decel Datetime: 05/25/2023 14:54 LaborFlag: Labor Datetime: 05/25/2023 14:46 MEDICATIONS Pitocin (milliunits): Decreased to @ 3 Datetime: 05/25/2023 14:38 Exam by: RN Jenny Datetime: 05/25/2023 14:30 Monitor Interventions for FHR: Ultrasound Adjusted Datetime: 05/25/2023 13:59 Membrane Status: Ruptured Membranes Rupture Method: Artificial Amniotic Fluid Color: Clear Amniotic Fluid Amount: Scant Datetime: 05/25/2023 13:38 PATIENT CARE Patient Position/Activity: Standing Datetime: 05/25/2023 13:15 Contraction Comments: RN at bedside palpating ctxs ASSESSMENT A Monitor Mode: External US Datetime: 05/25/2023 13:14 Monitor Interventions for UA: Dewitt Adjusted Datetime: 05/25/2023 12:54 COMMUNICATION Communication Comments: Dr. Baltes updated on Pt's labor progress via phone Datetime: 05/25/2023 12:45 UTERINE ACTIVITY Monitor Mode: External Frequency (min): 2-3 Quality: Strong Duration (sec): 50-70 Pattern: Normal: <= 5 Contractions in 10 Minutes Resting Tone (Palpate): Relaxed Pitocin Checklist: At Least 1 Acceleration of 15 bpm x 15 Seconds in 30 Minutes or Adequate Variabi lity; No More than 1 Late Deceleration Occurred in Past 30 Minutes; No More than 2 Variable Decelerat ions > 60 Seconds in Duration and decreasing >60 bpm in 30 minutes; No More than 5 Uterine Contractio ns in 10 Minutes for any 20 Minute Interval; Uterus Palpates Soft between Contractions FHR Baseline Rate : 135 Variability: Moderate 6-25 bpm Accelerations: 15X15 Decelerations: Variable Category: Category II Datetime: 05/25/2023 11:49 Vital Sign Comments: Pt standing and talking during BP monitor Datetime: 05/22/2023 14:56 Membranes Ruptured Date/Time: 05/25/2023 13:59 Amniotic Fluid Odor: Normal
== END 2023-05-26 16:10 | disposition home or self-care (01) | DRG 807 ==
LOC: WFO 08:10 → FBP 08:13 → WFO 09:25 → FBP 09:26
PROVIDERS: ADMIT Obstetrics & Gynecology Obstetrics; ATTEND Obstetrics & Gynecology Obstetrics
PROC: 10E0XZZ Delivery of Products of Conception, External Approach (ICD-10-PCS; principal; 2023-05-25)
PROC: 10907ZC Drainage of Amniotic Fluid, Therapeutic from Products of Conception, Via Natural or Artificial Opening (ICD-10-PCS; 2023-05-25)
PROC: 3E033VJ Introduction of Other Hormone into Peripheral Vein, Percutaneous Approach (ICD-10-PCS; 2023-05-25)
DX: O69.81X0 Labor and delivery complicated by cord around neck, without compression, not applicable or unspecified (principal); Z37.0 Single live birth; Z3A.40 40 weeks gestation of pregnancy
CPT/HCPCS: 59409; 85025; 86850; 86900; 86901; A9270; J7120; 84443

== ENCOUNTER 2023-12-09 12:59 | Emergency (ER) | payer OTHER ==
[2023-12-09 13:46] VITALS: O2SAT 100
--- NOTE | 2023-12-09 15:29 | ED Physician Documentation ---
History of Present Illness - Stated complaint Stated Complaint: H/A,DIZZINESS - Chief complaint Chief Complaint: Neuro - Additonal information Additional information: 28-year-old female with history of migraines and trigeminal neuralgia, depr ession, anxiety, ADD who presents emergency department for persistent headache and new dizziness today.Patient is being followed by neurologist outpatient her next appointment is on the but she is very worried and concerned today because her dizziness is new and she feels like its to the point where she is having a hard time coping with that at home. No recent fevers or chills. She does report that her primary care provider recently increased her amitriptyline to 50 mg nightly about 6 days ago and is worried that maybe this is what is causing her dizziness and symptoms. No recent head trauma. PD PAST MEDICAL HISTORY - Past Medical History Neuro: Migraines Psych: Depression, Anxiety, ADD/ADHD - Past Surgical History Past Surgical History: No - Allergies Allergies/Adverse Reactions: Allergies Allergy/AdvReac Type Severity Reaction Status Date / Time nickel Allergy Hives Verified 12/09/23 13:44 Latex, Natural Rubber AdvReac Itching Verified 12/09/23 13:44 - Social History Does the pt smoke?: No Smoking Status: Never smoker Does the pt drink ETOH?: Yes Does the pt have substance abuse?: No PD ED PE NORMAL - Vitals Vital signs reviewed: Yes - General General: Alert and oriented X 3, No acute distress, Well developed/nourished - HEENT HEENT: Atraumatic - Cardiac Cardiac: RRR, Strong equal pulses - Respiratory Respiratory: No respiratory distress, Clear bilaterally - Derm Derm: Normal color, Warm and dry, No rash - Extremities Extremities: No deformity, No edema, No calf tenderness / cord - Neuro Neuro: Alert and oriented X 3, adobe ball mixer 2-12 intact, No motor deficit, No sensory deficit, Normal speech Eye Opening: Spontaneous Motor: Obeys Commands Verbal: Oriented GCS Score: 15 - Psych Psych: Normal mood, Normal affect Results - Vitals Vitals: Vital Signs - 24 hr 12/09/23 12/09/23 12/09/23 13:38 17:00 17:06 Temperature 36.3 C L Heart Rate 100 94 Heart Rate [ 88 Sitting] Heart Rate [ 94 Standing] Heart Rate [ 94 Supine] Respiratory 18 18 Rate Blood Pressure 147/90 H 123/73 Blood Pressure 133/86 H [Sitting] Blood Pressure 134/98 H [Standing] Blood Pressure 123/73 [Supine] O2 Saturation 100 100 12/09/23 18:10 Temperature Heart Rate 90 Heart Rate [ Sitting] Heart Rate [ Standing] Heart Rate [ Supine] Respiratory 16 Rate Blood Pressure 124/75 Blood Pressure [Sitting] Blood Pressure [Standing] Blood Pressure [Supine] O2 Saturation 100 Oxygen O2 Source Room air - EKG (time done) 1648 EKG releavant findings:: EKG personally interpreted by author of this note. Relevant findings are: Rate: Rate (enter#) (84) Rhythm: NSR Ollie: Normal Intervals: Normal TN QRS: Normal Ischemia: Normal ST segments Other comments: Other comments (possible W waves in inferior leads) Computer interpretation: Agree with computer - Labs Labs: Laboratory Tests 12/09/23 12/09/23 12/09/23 15:36 15:36 15:47 WBC 6.7 RBC 4.33 Hgb 12.8 Hct 37.4 MCV 86.4 MCH 29.6 MCHC 34.2 RDW 13.1 Plt Count 287 MPV 9.8 Neut # (Auto) 4.1 Lymph # (Auto) 2.1 Addison # (Auto) 0.3 Eos # (Auto) 0.1 Baso # (Auto) 0.0 Absolute Nucleated RBC 0.00 Nucleated RBC % 0.0 Sodium 138 Potassium 4.0 Chloride 103 Carbon Dioxide 29 Anion Gap 6.0 BUN 15 Creatinine 1.0 Estimated GFR (MDRD) 67 L Glucose 106 H Calcium 9.9 Magnesium 1.8 Total Bilirubin 0.3 AST 15 ALT 12 Alkaline Phosphatase 93 Total Protein 7.5 Albumin 4.7 Globulin 2.8 Albumin/Globulin Ratio 1.7 Lipase 18 Urine HCG, Qual NEGATIVE - Rads (name of study) Head CT without Relevant Findings:: Final report received, EMP independent interpretation of test, Other (No acute intracranial pathology or findings) PD Medical Decision Making - ED course ED course: 28-year-old female presents emergency department for concerns of dizziness. Because patient said that these are new symptoms for her she has been struggling with headaches and migraines for some time now has had no imaging for this is worried that something is wrong we went ahead and did CT without con. I was u nable to cause any sort of nystagmus she did get dizzy when standing but did have negative orthostatic vital signs. We went ahead and did head CT without con out of abundance of caution and did not find any acute intracranial pathology or findings. EKG was also complete no acute abnormalities possible Q waves in the inferior leads labs are also complete for further evaluation and CBC was found to be completely unremarkable no electrolyte abnormalities and negative hCG. A Lamictal level was sent out to help of this will take a couple days for results to come back. She has a follow-up appointment with her neurologist on 12/16/2023. Given that she has a negative head CT no acute lab abnormalities or findings and her weight is any further workup indicated at this time especially since she has close follow-up with neurology outpatient. She is told to come back to the ER if her symptoms get any worse and to go ahead and either take half dose of her amitriptyline or skip a dose of amitriptyline tonight to see if symptoms improve tomorrow. Departure - Departure Disposition: 01 Home, Self Care Clinical Impression: Headache, Dizziness Instructions: ED Dizziness [facility] Comments: Thank you for trusting us with your care. We have completed labs as well as a head CT and we are not seeing any acute abnormalities or findings at this point in time. As we discussed is very importantly follow-up with your primary care provider as well as your neurologist for further evaluation to see if they want to do any further more advanced testing. If your neurologist asked we did go ahead and send a Lamictal level but this takes a couple days to get results you can call our medical records and have these results sent to your neurologist if this would be helpful. If your symptoms get any worse or you start to develop any other neurological concerning symptoms please come back to the emergency department for further evaluation. Forms: PCP List Discharge Date/Time: 12/09/23 18:34
[2023-12-09 15:45] LABS: BASOPHILS % (AUTO) 0.5 %; EOSINOPHILS # (AUTO) 0.1 10^3/uL (0.0-0.7); EOSINOPHILS % (AUTO) 0.9 %; HCT - HEMATOCRIT 37.4 % (37.0-47.0); HGB - HEMOGLOBIN 12.8 g/dL (12.0-16.0); LYMPHOCYTES # (AUTO) 2.1 10^3/uL (1.5-3.5); LYMPHOCYTES % (AUTO) 31.9 %; MEAN CORPUSCULAR HEMOGLOBIN 29.6 pg (27.0-31.0); MEAN CORPUSCULAR HGB CONC 34.2 g/dL (32.0-36.0); MEAN CORPUSCULAR VOLUME 86.4 fL (81.0-99.0); MEAN PLATELET VOLUME 9.8 fL (7.9-10.8); MONOCYTES # (AUTO) 0.3 10^3/uL (0.0-1.0); MONOCYTES % (AUTO) 4.8 %; NEUTROPHILS # (AUTO) 4.1 10^3/uL (1.5-6.6); NEUTROPHILS % (AUTO) 61.4 %; PLT - PLATELET COUNT 287 10^3/uL (130-450); RED BLOOD COUNT 4.33 10^6/uL (4.20-5.40); RED CELL DISTRIBUTION WIDTH 13.1 % (12.0-15.0); WHITE BLOOD COUNT 6.7 x10^3/uL (4.8-10.8)
[2023-12-09 15:56] LABS: HCG UR QUAL NEGATIVE
[2023-12-09 16:00] LABS: ALBUMIN 4.7 g/dL (3.2-5.5); ALBUMIN/GLOBULIN RATIO 1.7 (1.0-2.2); BILIRUBIN,TOTAL 0.3 mg/dL (0.2-1.0); CALCIUM 9.9 mg/dL (8.5-10.3); MAGNESIUM 1.8 mg/dL (1.7-2.3); TOTAL PROTEIN 7.5 g/dL (6.4-8.9)
--- NOTE | 2023-12-09 17:13 | CT Report ---
PROCEDURE: Head WO INDICATIONS: dizziness, change in migraine pattern TECHNIQUE: Noncontrast 4.5 mm thick angled axial sections acquired from the foramen magnum to the vertex. For r adiation dose reduction, the following was used: automated exposure control, adjustment of mA and/or kV according to patient size. COMPARISON: None. FINDINGS: Image quality: Excellent. CSF spaces: Basal cisterns are patent. No extra-axial fluid collections. Ventricles are normal in size and shape. Brain: No midline shift. No intracranial masses or hemorrhage. Brown-white matter interface is norm al. Skull and face: Calvarium and visualized facial bones are intact, without suspicious lesions. Sinuses: Visualized sinuses and mastoids are clear. IMPRESSION: No acute intracranial pathology. Reviewed by: Horacio Castellano MD on 12/09/2023 5:11 PM PDT Approved by: Horacio Castellano MD on 12/09/2023 5:11 PM PDT Station ID: [id number]
[2023-12-09 18:41] VITALS: BP 124/75
== END 2023-12-09 18:34 | disposition home or self-care (01) ==
LOC: ED 12:59
DX: R51.9 Headache, unspecified (principal); R42 Dizziness and giddiness; Z91.040 Latex allergy status; Z79.899 Other long term (current) drug therapy
CPT/HCPCS: 36415; 80053; 80175; 81025; 83690; 83735; 85025; 93005; 99284